=== PATIENT | female | born 1960 | race Caucasian/White ===

== ENCOUNTER 2016-09-07 06:29 | Day surgery (SDC) | payer BC ==
[2016-09-07] MEDS ORDERED: PROPOFOL 10 MG/ML VIAL IV ONE (14:00)
[2016-09-07] MEDS ORDERED: LIDOCAINE 2% MDV (20MG/ML) 20ML VIAL IV ONE (14:00)
[2016-09-07] MEDS ORDERED: MIDAZOLAM HCL 2MG/2ML VIAL IV ONE (14:00)
--- NOTE | 2016-09-12 10:38 | Operative Note ---
DATE OF SERVICE: 09/07/2016. REQUESTING PROVIDER: Nichol Vasquez M.D. SURGEON: Shahrzad Zhang M.D. POSTOPERATIVE DIAGNOSES: 1. A 3 mm sigmoid colon polyp that was removed by cold biopsy forceps. 2. Two 1-1.5 cm rectal polyps that were removed by snare cautery with ink. OPERATION: Colonoscopy. REASON FOR PROCEDURE: This is a 55-year-old female with presenting for screening colonoscopy. SEDATION: Sedation is per Anesthesia. Pulse oximetry was monitored throughout the duration of the procedure to maintain O2 saturation of 90% or greater. Supplemental oxygen was administered via nasal cannula. Cardiac and vital signs were monitored throughout the duration of the procedure and they were stable. PROCEDURE: The procedure of colonoscopy, risks and alternatives to the procedure, including the risks of bleeding and perforation among others, were explained to the patient. She was understanding and agreed to have the procedure done. Physical examination was performed and the patient was found stable for sedation. The patient was then placed in the left lateral position and sedation was initiated. Digital rectal exam was performed, which showed some external hemorrhoids with no palpable rectal masses. A lubricated Olympus PCF-180AL colonoscope was then inserted into the rectum under direct visualization and advanced to the cecum without difficulty. The ileocecal valve and appendiceal orifice were identified and photographed. Colonic mucosa was carefully examined upon retroflexion of the colonoscope. There were 2 1.5-1 cm lesions that were noted in the rectum. There were no other lesions. The colonoscope was carefully withdrawn while carefully examining the colonic mucosal surfaces. No other lesions were noted in the cecum, ascending colon, transverse colon, or descending colon. In the sigmoid colon was a 3 mm sessile polyp that was removed by cold biopsy forceps. In the rectum were the 2 1-1.5 cm polyps that were removed by snare cautery. The biggest one was noted to have a clean base and ink was applied to teto the spot for further evaluation if needed. Thank you for allowing me to participate in the care of this patient. She is to have a repeat colonoscopy in 1-3 years, depending on the of the polyps. MD SAM Phan
== END 2016-09-07 08:16 | disposition home or self-care (01) ==
LOC: HOP 06:29
PROVIDERS: ATTEND Internal Medicine Gastroenterology
DX: Z12.11 Encounter for screening for malignant neoplasm of colon (principal); D12.8 Benign neoplasm of rectum; K63.5 Polyp of colon